=== PATIENT | male | born 1990 | race Caucasian/White ===

== ENCOUNTER 2016-12-24 12:56 | Emergency (ER) | payer OTHER ==
[2016-12-24] MEDS ORDERED: ONDANSETRON 4 MG TAB.RAPDIS PO ONE (13:04)
--- NOTE | 2016-12-24 13:04 | ER Document Report ---
ED Medical Screen (RME) - General TRAVEL OUTSIDE OF THE [place] IN LAST 30 DAYS: No <ROGER DARBY - Last Filed: 12/24/16 13:01> <ALICE PATRICK - Last Filed: 12/26/16 05:39> - General Stated Complaint: ABDOMINAL PAIN Notes: 26 yo male with lower abdominal cramping x 2 days. ? food poisoning from under cooked chicken per patient + vomiting and diarrhea. not tolerating any po x 3 days (ROGER DARBY) - Related Data Allergies/Adverse Reactions: doxycycline [Doxycycline] Allergy (Mild, Verified 12/24/16 13:03) Rash Past Medical History Past Surgical History: Reports: Hx Appendectomy <ROGER DARBY - Last Filed: 12/24/16 13:01> Course - Laboratory Result Diagrams: 12/24/16 13:10 12/24/16 13:10 <ALICE PATRICK - Last Filed: 12/26/16 05:39> - Vital Signs Vital signs: Temp Pulse Resp BP Pulse Ox 97.3 F 60 16 116/82 97 12/24/16 13:03 12/24/16 17:58 12/24/16 13:03 12/24/16 17:58 12/24/16 17:58 - Laboratory Laboratory results interpreted by me: 12/24/16 12/24/16 12/24/16 13:10 13:10 13:10 Eosinophils % 14.6 H Absolute Eosinophils 0.7 H Glucose 73 L Total Bilirubin 2.5 H Urine Ketones 20 H Urine Urobilinogen 2.0 H Doctor's Discharge <ROGER DARBY - Last Filed: 12/24/16 13:01> <ALICE PATRICK - Last Filed: 12/26/16 05:39> - Discharge Clinical Impression: Food poisoning, Nausea vomiting and diarrhea Condition: Stable Disposition: HOME, SELF-CARE Instructions: Diarrhea, Nonspecific ([facility]), Vomiting ([facility]) Prescriptions: Ciprofloxacin HCl [Cipro 500 mg Tablet] 500 mg PO BID #10 tablet Dicyclomine HCl [Bentyl 20 mg Tablet] 20 mg PO QID #40 tablet Promethazine HCl [Phenergan 25 mg Tablet] 25 - 50 mg PO ASDIR PRN #12 tablet PRN Reason: Referrals: FROEDE,VIRGILIO B, MD [Primary Care Provider] - Follow up tomorrow
[2016-12-24 13:43] LABS: ABSOLUTE BASOPHILS # (AUTO) 0.1 10^3/uL (0.0-0.2); ABSOLUTE EOSINOPHILS # (AUTO) 0.7 10^3/uL (0.0-0.6); ABSOLUTE LYMPHOCYTES (AUTO) 1.5 10^3/uL (0.5-4.7); ABSOLUTE MONOCYTES (AUTO) 0.3 10^3/uL (0.1-1.4); ABSOLUTE NEUT (AUTO) 2.1 10^3/uL (1.7-8.2); BASOPHILS % (AUTO) 1.3 % (0-2); EOSINOPHILS % (AUTO) 14.6 % (0-6); HEMATOCRIT 44.6 % (37.9-51.0); HEMOGLOBIN 15.9 g/dL (13.5-17.0); HGB HCT DIFFERENCE 3.1; LYMPHOCYTES % (AUTO) 31.6 % (13-45); MEAN CORPUSCULAR HEMOGLOBIN 30.6 pg (27.0-33.4); MEAN CORPUSCULAR HGB CONC 35.6 g/dL (32.0-36.0); MEAN CORPUSCULAR VOLUME 86 fl (80-97); MONOCYTES % (AUTO) 7.2 % (3-13); RED CELL DISTRIBUTION WIDTH 13.3 % (11.5-14.0); SEGMENTED NEUTROPHILS % (AUTO) 45.3 % (42-78); WHITE BLOOD COUNT 4.6 10^3/uL (4.0-10.5)
[2016-12-24 13:50] LABS: APPEARANCE,URINE SLIGHTLY-CLOUDY; BILIRUBIN,URINE NEGATIVE (NEGATIVE); GLUCOSE, URINE NEGATIVE (NEGATIVE); KETONES,URINE 20 mg/dL (NEGATIVE); LEUKOCYTE ESTERASE,URINE NEGATIVE (NEGATIVE); NITRITE,URINE NEGATIVE (NEGATIVE); PROTEIN,URINE NEGATIVE (NEGATIVE); URINE SPECIFIC GRAVITY 1.028
[2016-12-24 14:06] LABS: ALANINE AMINOTRANSFERASE 35 U/L (21-72); ALBUMIN 4.6 g/dL (3.5-5.0); ALKALINE PHOSPHATASE 55 U/L (38-126); ANION GAP 17 (5-19); ASPARTATE AMINO TRANSFERASE 29 U/L (17-59); BILIRUBIN,DIRECT 0.4 mg/dL (0.0-0.4); BILIRUBIN,TOTAL 2.5 mg/dL (0.2-1.3); BLOOD UREA NITROGEN 14 mg/dL (7-20); CALCIUM 9.8 mg/dL (8.4-10.2); CARBON DIOXIDE 24 mmol/L (22-30); CHLORIDE 103 mmol/L (98-107); GLUCOSE 73 mg/dL (75-110); LIPASE 37.2 U/L (23-300); POTASSIUM 4.1 mmol/L (3.6-5.0); SODIUM 143.9 mmol/L (137-145); TOTAL PROTEIN 7.5 g/dL (6.3-8.2)
[2016-12-24] MEDS ORDERED: METOCLOPRAMIDE HCL INJ/PF 10 MG/2 ML SDV IV ONE (17:12)
[2016-12-24] MEDS ORDERED: DICYCLOMINE HCL INJ 20 MG/2 ML AMPULE IM ONE (17:13)
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
[2016-12-24 18:17] VITALS: BP 116/82
== END 2016-12-24 18:10 | disposition home or self-care (01) ==
LOC: ER 12:56
DX: T62.91XA Toxic effect of unspecified noxious substance eaten as food, accidental (unintentional), initial encounter (principal); R11.2 Nausea with vomiting, unspecified; R19.7 Diarrhea, unspecified; Z88.1 Allergy status to other antibiotic agents; Z90.49 Acquired absence of other specified parts of digestive tract
CPT/HCPCS: 99284; 96372; 96374; 36415; 83690; 85025; 80053; 81001; J0500; S0119; J2765

== ENCOUNTER 2017-06-07 22:37 | Emergency (ER) | payer OTHER ==
[2017-06-07] MEDS ORDERED: NALOXONE HCL INJ 2 MG/2 ML DISP.SYRIN ONE (22:46)
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
[2017-06-07 22:58] LABS: ABSOLUTE BASOPHILS # (AUTO) 0.1 10^3/uL (0.0-0.2); ABSOLUTE EOSINOPHILS # (AUTO) 1.1 10^3/uL (0.0-0.6); ABSOLUTE LYMPHOCYTES (AUTO) 2.2 10^3/uL (0.5-4.7); ABSOLUTE MONOCYTES (AUTO) 0.5 10^3/uL (0.1-1.4); ABSOLUTE NEUT (AUTO) 2.7 10^3/uL (1.7-8.2); BASOPHILS % (AUTO) 1.1 % (0-2); EOSINOPHILS % (AUTO) 16.1 % (0-6); HEMATOCRIT 44.5 % (37.9-51.0); HEMOGLOBIN 15.8 g/dL (13.5-17.0); HGB HCT DIFFERENCE 2.9; LYMPHOCYTES % (AUTO) 33.3 % (13-45); MEAN CORPUSCULAR HGB CONC 35.4 g/dL (32.0-36.0); MEAN CORPUSCULAR VOLUME 87 fl (80-97); MONOCYTES % (AUTO) 8.3 % (3-13); RED CELL DISTRIBUTION WIDTH 13.1 % (11.5-14.0); SEGMENTED NEUTROPHILS % (AUTO) 41.2 % (42-78); WHITE BLOOD COUNT 6.6 10^3/uL (4.0-10.5)
[2017-06-07 23:15] LABS: ALANINE AMINOTRANSFERASE 18 U/L (21-72); ALBUMIN 4.2 g/dL (3.5-5.0); ALKALINE PHOSPHATASE 57 U/L (38-126); ANION GAP 8 (5-19); ASPARTATE AMINO TRANSFERASE 22 U/L (17-59); BILIRUBIN,DIRECT 0.2 mg/dL (0.0-0.4); BILIRUBIN,TOTAL 1.5 mg/dL (0.2-1.3); BLOOD UREA NITROGEN 17 mg/dL (7-20); CALCIUM 9.5 mg/dL (8.4-10.2); CARBON DIOXIDE 31 mmol/L (22-30); CHLORIDE 104 mmol/L (98-107); CREATINE KINASE 61 U/L (55-170); CREATININE RESULT 0.87 mg/dL (0.52-1.25); GLUCOSE 77 mg/dL (75-110); POTASSIUM 3.6 mmol/L (3.6-5.0); SODIUM 142.5 mmol/L (137-145); TOTAL PROTEIN 7.2 g/dL (6.3-8.2)
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
--- NOTE | 2017-06-08 00:16 | RADIOLOGY REPORT (SQ) ---
EXAM DESCRIPTION: CHEST SINGLE VIEW COMPLETED DATE/TIME: 06/07/2017 11:51 pm REASON FOR STUDY: , fall COMPARISON: None. EXAM PARAMETERS: NUMBER OF VIEWS: One view. TECHNIQUE: Single frontal radiographic view of the chest acquired. RADIATION DOSE: NA LIMITATIONS: None. FINDINGS: LUNGS AND PLEURA: No opacities, masses or pneumothorax. No pleural effusion. MEDIASTINUM AND HILAR STRUCTURES: No masses. Contour normal. HEART AND VASCULAR STRUCTURES: Heart normal in size. Normal vasculature. BONES: No acute findings. HARDWARE: None in the chest. OTHER: No other significant finding. IMPRESSION: NO ACUTE RADIOGRAPHIC FINDING IN THE CHEST. TECHNICAL DOCUMENTATION: JOB ID: [id number]
[2017-06-08 01:10] VITALS: BP 121/78
[2017-06-08 01:40] LABS: URINE BARBITURATES SCREEN NEGATIVE; URINE METHADONE SCREEN NEGATIVE; URINE OPIATES LOW NEGATIVE; URINE PHENCYCLIDINE SCREEN NEGATIVE
--- NOTE | 2017-06-08 07:01 | EKG REPORT ---
SEVERITY:- NORMAL ECG - SINUS RHYTHM : Confirmed by: Charlie Scott 08-Jun-2017 07:00:14
== END 2017-06-08 01:09 | disposition home or self-care (01) ==
LOC: ER 22:37
DX: S20.229A Contusion of unspecified back wall of thorax, initial encounter (principal); S70.02XA Contusion of left hip, initial encounter; S16.1XXA Strain of muscle, fascia and tendon at neck level, initial encounter; S06.0X9A Concussion with loss of consciousness of unspecified duration, initial encounter; R41.82 Altered mental status, unspecified; W01.0XXA Fall on same level from slipping, tripping and stumbling without subsequent striking against object, initial encounter; Y92.009 Unspecified place in unspecified non-institutional (private) residence as the place of occurrence of the external cause
CPT/HCPCS: 93005; 99285; 36415; 82550; 85025; 80053; 80307; 71010; 72170; 72070; 70450; 72125; 93010; J2310

== ENCOUNTER 2018-01-18 01:09 | Emergency (ER) | payer OTHER ==
[2018-01-18] MEDS ORDERED: KETAMINE HCL INJ 500 MG/10 ML VIAL ONE (01:13)
[2018-01-18] MEDS ORDERED: KETAMINE HCL INJ 500 MG/10 ML VIAL IM ONE (01:20)
[2018-01-18] MEDS ORDERED: NORMAL SALINE 1000 ML 1,000 ML IV ONE (01:21)
--- NOTE | 2018-01-18 01:25 | ER Document Report ---
ED General - General Stated Complaint: POSSIBLE OVERDOSE Time Seen by Provider: 01/18/18 01:20 Cannot obtain history due to: Uncooperative, Altered mental status Notes: Patient is a 27-year-old male with unknown past medical history who presents by EMS after apparently attempting to commit suicide by polysubstance overdose. The patient has dozens of pill bottles that were brought with him that contain multiple different medications and is unable to state clearly which medications he did not did not take. No additional history can be taken as the patient is screaming, resisting against security staff and requiring restraints at time of arrival. TRAVEL OUTSIDE OF THE [place] IN LAST 30 DAYS: No - Related Data Allergies/Adverse Reactions: doxycycline [Doxycycline] Allergy (Mild, Verified 12/24/16 13:03) Rash Past Medical History - General Information source: Emergency Med Personnel, [facility] Records Cannot obtain history due to: Uncooperative, Altered mental status - Social History Smoking Status: Unknown if Ever Smoked Frequency of alcohol use: Occasional Drug Abuse: Prescription drugs Lives with: Alone Family History: Reviewed & Not Pertinent - Past Medical History Cardiac Medical History: Reports: Hx Congestive Heart Failure Renal/ Medical History: Denies: Hx Peritoneal Dialysis Past Surgical History: Reports: Hx Appendectomy - Immunizations Hx Diphtheria, Pertussis, Tetanus Vaccination: Yes Review of Systems - Review of Systems -: Yes ROS unobtainable due to patient's medical condition Physical Exam - Vital signs Vitals: Resp 28 H 01/18/18 01:14 Interpretation: Hypertensive, Tachycardic, Tachypneic Notes: PHYSICAL EXAMINATION: GENERAL: Extremely agitated, combative, confused HEAD: Atraumatic, normocephalic. EYES: Pupils equal round and reactive to light, extraocular movements intact, sclera anicteric, conjunctiva are normal. ENT: nares patent, oropharynx clear without exudates. Dry mucous membranes. NECK: Normal range of motion, supple without lymphadenopathy LUNGS: Moderate tachypnea, yelling, breath sounds are present bilaterally HEART: Regular tachycardia without murmurs ABDOMEN: Soft, nontender, normoactive bowel sounds. No guarding, no rebound. No masses appreciated. EXTREMITIES: Normal range of motion, no pitting or edema. No cyanosis. NEUROLOGICAL: No focal neurological deficits. Moves all extremities spontaneously. PSYCH: Agitated, combative SKIN: Warm, Dry, normal turgor, no rashes or lesions noted. Course - Re-evaluation Re-evalutation: 01/18/18 01:29 Documentation is delayed as I was at the bedside with the patient for 20 minutes prior to beginning documentation. Patient arrives agitated, combative, immediately requiring security to help hold into the bed and physically restrain him. Patient has only received 5 mg of intramuscular Versed and 50 mg of intramuscular diphenhydramine in route to the hospital with any apparent effect. The patient is screaming, demanding that we allow him to kill himself. He is an immediate threat to himself and multiple staff members as he is swinging violently. Patient has a polysubstance overdose and I would like to avoid antipsychotics for this reason as he has apparently taken many different kinds of antidepressants, possibly lithium, zolpidem, clonazepam. Therefore the patient was given 400 mg of intramuscular ketamine. This did result in appropriate sedation within approximately 5 minutes of the patient receiving the medication. A full panel of laboratories will be obtained, IV fluids have been initiated. We will contact poison control for assistance in management of this patient particularly given that he is ready had several seizures per EMS report. 01/18/18 02:19 Patient continues to be much more appropriately sedated, calm, resting without any distress. His vital signs have likewise normalized current heart rate at 90 , blood pressure 123 and 72, saturating 97% on air. Poison control has been contacted and does not recommend any immediate therapies at this time other than clinical monitoring on telemetry and treating any seizures with benzodiazepines. Will continue to reassess frequently. IVC has been completed. 01/18/18 03:24 Laboratories show that the patient does have mild rhabdomyolysis with a CK of 2400 although his renal function is normal. Additional IV fluids have been initiated. He continues to be well sedated, calm without any further agitation. Physical restraints have been removed. - Vital Signs Vital signs: Temp Pulse Resp BP Pulse Ox 17 123/72 96 01/18/18 02:01 01/18/18 02:00 01/18/18 02:01 - Laboratory Result Diagrams: 01/18/18 01:25 01/18/18 01:25 Laboratory results interpreted by me: 01/18/18 01/18/18 01:25 01:25 Seg Neutrophils % 36.0 L Lymphocytes % 51.0 H Sodium 151.8 H Carbon Dioxide 15 L Anion Gap 30 H Glucose 123 H AST 101 H Creatine Kinase 2458 H Salicylates < 1.0 L Acetaminophen < 10 L [place] < 0.2 L - EKG Interpretation by Me Additional EKG results interpreted by me: 01/18/18 03:25 Sinus tachycardia. Rate 102. No ST elevations or depressions. QTC 454. QRS within acceptable limits. First-degree AV block. Critical Care Note - Critical Care Note Total time excluding time spent on procedures (mins): 41 Discharge - Discharge Clinical Impression: Suicide attempt, Agitation Polysubstance overdose Qualifiers: Encounter type: initial encounter Injury intent: intentional self-harm Qualified Code(s): T50.902A - Poisoning by unspecified drugs, medicaments and biological substances, intentional self-harm, initial encounter Rhabdomyolysis Qualifiers: Rhabdomyolysis type: non-traumatic Qualified Code(s): M62.82 - Rhabdomyolysis Condition: Fair Disposition: PSYCH HOSP/UNIT
[2018-01-18 01:35] LABS: ABSOLUTE BASOPHILS # (AUTO) 0.1 10^3/uL (0.0-0.2); ABSOLUTE EOSINOPHILS # (AUTO) 0.5 10^3/uL (0.0-0.6); ABSOLUTE LYMPHOCYTES (AUTO) 4.6 10^3/uL (0.5-4.7); ABSOLUTE MONOCYTES (AUTO) 0.6 10^3/uL (0.1-1.4); ABSOLUTE NEUT (AUTO) 3.3 10^3/uL (1.7-8.2); BASOPHILS % (AUTO) 0.9 % (0-2); EOSINOPHILS % (AUTO) 5.4 % (0-6); HEMATOCRIT 48.7 % (37.9-51.0); HEMOGLOBIN 16.5 g/dL (13.5-17.0); MEAN CORPUSCULAR HEMOGLOBIN 30.2 pg (27.0-33.4); MEAN CORPUSCULAR HGB CONC 33.9 g/dL (32.0-36.0); MEAN CORPUSCULAR VOLUME 89 fl (80-97); MONOCYTES % (AUTO) 6.7 % (3-13); PLATELET COUNT 326 10^3/uL (150-450); RED BLOOD COUNT 5.46 10^6/uL (4.35-5.55); RED CELL DISTRIBUTION WIDTH 13.6 % (11.5-14.0); TOTAL CELLS COUNTED % (AUTO) 100 %
[2018-01-18 01:54] LABS: ALANINE AMINOTRANSFERASE 42 U/L (21-72); ALBUMIN 4.8 g/dL (3.5-5.0); ALKALINE PHOSPHATASE 72 U/L (38-126); ASPARTATE AMINO TRANSFERASE 101 U/L (17-59); BILIRUBIN,DIRECT 0.3 mg/dL (0.0-0.4); BILIRUBIN,TOTAL 0.5 mg/dL (0.2-1.3); BLOOD UREA NITROGEN 13 mg/dL (7-20); CALCIUM 9.5 mg/dL (8.4-10.2); GLUCOSE 123 mg/dL (75-110); TOTAL PROTEIN 7.9 g/dL (6.3-8.2)
[2018-01-18 01:55] LABS: ALCOHOL 209 mg/dL (NONE DETECTED)
[2018-01-18 01:59] LABS: CARBON DIOXIDE 15 mmol/L (22-30); CHLORIDE 107 mmol/L (98-107); SODIUM 151.8 mmol/L (137-145)
[2018-01-18 02:09] LABS: ACETAMINOPHEN < 10 ug/mL (10-30); CREATINE KINASE 2458 U/L (55-170); LITHIUM < 0.2 mEq/L (0.6-1.2); SALICYLATE < 1.0 mg/dL (2.0-20.0)
[2018-01-18 02:10] LABS: ANION GAP 30 (5-19)
[2018-01-18] MEDS ORDERED: RINGERS SOLUTION,LACTATED 1,000 ML IV ONE (03:22)
[2018-01-18 06:00] LABS: APPEARANCE,URINE SLIGHTLY HAZY; BILIRUBIN,URINE NEGATIVE (NEGATIVE); COLOR,URINE YELLOW; GLUCOSE, URINE NEGATIVE (NEGATIVE); KETONES,URINE NEGATIVE (NEGATIVE); LEUKOCYTE ESTERASE,URINE MODERATE (NEGATIVE); NITRITE,URINE NEGATIVE (NEGATIVE); PROTEIN,URINE NEGATIVE (NEGATIVE); URINE SPECIFIC GRAVITY 1.016; UROBILINOGEN,URINE NEGATIVE mg/dL (<2.0)
[2018-01-18 06:14] LABS: URINE AMPHETAMINES SCREEN NEGATIVE; URINE BARBITURATES SCREEN NEGATIVE; URINE BENZODIAZEPINES SCREEN UNCONFIRMED POSITIVE; URINE COCAINE SCREEN NEGATIVE; URINE MARIJUANA (THC) SCREEN NEGATIVE; URINE METHADONE SCREEN NEGATIVE; URINE PHENCYCLIDINE SCREEN NEGATIVE
--- NOTE | 2018-01-18 06:24 | EKG REPORT ---
SEVERITY:- ABNORMAL ECG - SINUS TACHYCARDIA FIRST DEGREE AV BLOCK NONSPECIFIC ST-T CHANGES- INFERIOR LEADS : Confirmed by: Dustin Mackenzie MD 18-Jan-2018 06:23:20
[2018-01-18] MEDS ORDERED: LORAZEPAM INJ 2 MG/1 ML VIAL IV ONE ×2 (07:01→07:50)
[2018-01-18] MEDS ORDERED: HYDROXYZINE PAMOATE 50 MG CAPSULE PO ONE (10:13)
[2018-01-18] MEDS ORDERED: ACETAMINOPHEN 325 MG TABLET PO ONE (10:13)
[2018-01-18] MEDS ORDERED: NAPROXEN 375 MG TABLET PO ONE (10:13)
--- NOTE | 2018-01-18 10:19 | ER Document Report ---
Doctor's Note Notes: 01/18/18 10:17 Rounds: Chart reviewed and patient interviewed. Patient with a history of TBI and PTSD for which he takes Zoloft and says he has been taking it regularly. Denies other medical conditions. Patient says he does not remember what happened last night. He remembers being brought here by EMS. Does not recall much of anything else. He says he had too much to drink. EtOH was 209 here upon admission. Patient is calm and cooperative and says he will try to escape again. He like to be out of his restraints which I have ordered. His CPK was 2458 and he has had a couple of liters of fluid none given him another couple of liters of Ringer's lactate. May have anything he wants orally. Will repeat checking his CPK until we are comfortable that he is not going to experience any deleterious effects of the elevated CPK. Sommer Arnold MD 01/18/18 15:52 Patient is doing much better. He is bright, awake, alert, feels fine and denies any suicidal thoughts at this time. He has been fairly well hydrated with IV fluids and his CPK has started to decline from 2500 to 2400. Patient advised of the need to drink lots of fluids over the next couple of days and avoid excessive muscular activity and to return if he starts noticing a dark color change in his urine.
[2018-01-18] MEDS: RINGERS SOLUTION,LACTATED 1,000 ML IV PRN ×2 (10:33→10:35)
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
[2018-01-18 15:13] LABS: ALANINE AMINOTRANSFERASE 38 U/L (21-72); ALKALINE PHOSPHATASE 51 U/L (38-126); ANION GAP 11 (5-19); ASPARTATE AMINO TRANSFERASE 92 U/L (17-59); BILIRUBIN,DIRECT 0.2 mg/dL (0.0-0.4); BILIRUBIN,TOTAL 0.6 mg/dL (0.2-1.3); BLOOD UREA NITROGEN 10 mg/dL (7-20); CALCIUM 9.4 mg/dL (8.4-10.2); CHLORIDE 105 mmol/L (98-107); GLUCOSE 83 mg/dL (75-110); POTASSIUM 4.1 mmol/L (3.6-5.0); SODIUM 144.6 mmol/L (137-145); TOTAL PROTEIN 6.8 g/dL (6.3-8.2)
[2018-01-18 15:23] LABS: CARBON DIOXIDE 29 mmol/L (22-30); CREATINE KINASE 2223 U/L (55-170)
[2018-01-18 15:59] VITALS: BP 121/84
== END 2018-01-18 16:13 ==
LOC: ER 01:09
DX: T50.902A Poisoning by unspecified drugs, medicaments and biological substances, intentional self-harm, initial encounter (principal); M62.82 Rhabdomyolysis; R41.0 Disorientation, unspecified; R45.1 Restlessness and agitation; R00.0 Tachycardia, unspecified; R06.82 Tachypnea, not elsewhere classified; F43.10 Post-traumatic stress disorder, unspecified; Z79.899 Other long term (current) drug therapy; Z78.1 Physical restraint status; Z87.820 Personal history of traumatic brain injury; Z88.1 Allergy status to other antibiotic agents
CPT/HCPCS: 93005; 99291; 96372; 96361; 96365; 36415; 80307 ×4; 82550; 80178; 85025; 80053; 81001; 93010; J3490 ×2; J2060; J7030; J7120